=== PATIENT | female | born 1945 | race Caucasian/White ===

== ENCOUNTER 2022-10-19 11:39 | Inpatient (IN) | payer MEDICARE ==
[2022-10-19] MEDS ORDERED: IPRATROPIUM-ALBUTEROL 3 ML NEB INHALATION STA (12:14)
[2022-10-19] MEDS ORDERED: methylPREDNISolone SOD SUCCI 125 MG/2 ML VIAL IV STA (12:14)
--- NOTE | 2022-10-19 12:20 | ED ---
General Adult HPI - General Chief complaint: Weakness Stated complaint: back pain Time Seen by Provider: 10/19/22 11:44 Source: patient, EMS, RN notes reviewed Mode of arrival: EMS Limitations: physical limitation - History of Present Illness Initial comments: 77-year-old female presents emergency Department chief complaint weakness, hypoxia. Patient states that she's been having increasing weakness and which she states she cannot even stand up today. Patient was found to be hypoxic in the 70s. Patient states she does have asthma receives an inhaler from her PCP. Patient denies having history of COPD though she states she's been a heavy smoker for 50 years. Patient denies any focal weakness denies any current headache. She states she is very minimal urine output and states does occasionally burn when she does. Patient denies any fever or chills. She denies having any cold-like symptoms. Patient does have some chest tightness denies any pain - Related Data Allergies Allergy/AdvReac Type Severity Reaction Status Date / Time Penicillins Allergy Unknown Verified 10/19/22 12:29 sulfamethoxazole Allergy Unknown Verified 10/19/22 12:29 [From Bactrim] trimethoprim [From Bactrim] Allergy Unknown Verified 10/19/22 12:29 Review of Systems ROS Statement: Those systems with pertinent positive or pertinent negative responses have been documented in the HPI. ROS Other: All systems not noted in ROS Statement are negative. Past Medical History Past Medical History: Asthma Additional Past Surgical History / Comment(s): Colonoscopy. Smoking Status: Current every day smoker General Exam Limitations: physical limitation General appearance: alert, in no apparent distress Head exam: Present: atraumatic, normocephalic, normal inspection Eye exam: Present: normal appearance, PERRL, EOMI. Absent: scleral icterus, conjunctival injection, periorbital swelling ENT exam: Present: normal exam, normal oropharynx, mucous membranes moist Neck exam: Present: normal inspection. Absent: tenderness, meningismus, lymphadenopathy Respiratory exam: Present: wheezes, rales, decreased breath sounds. Absent: normal lung sounds bilaterally, respiratory distress, rhonchi, stridor Cardiovascular Exam: Present: regular rate, normal rhythm, normal heart sounds. Absent: systolic murmur, diastolic murmur, rubs, gallop, clicks GI/Abdominal exam: Present: soft, normal bowel sounds. Absent: distended, tenderness, guarding, rebound, rigid Extremities exam: Absent: pedal edema Skin exam: Present: warm, dry, intact, normal color. Absent: rash Course Vital Signs 10/19/22 10/19/22 10/19/22 11:46 11:59 13:12 Temperature 98.7 F Pulse Rate 55 L 76 Respiratory 18 Rate Blood Pressure 100/66 O2 Sat by Pulse 75 L 94 L Oximetry 10/19/22 10/19/22 10/19/22 13:17 13:19 13:20 Temperature Pulse Rate 75 71 71 Respiratory 18 Rate Blood Pressure 108/65 O2 Sat by Pulse 94 L Oximetry 10/19/22 10/19/22 13:27 14:58 Temperature Pulse Rate 73 82 Respiratory 18 Rate Blood Pressure 106/58 O2 Sat by Pulse 93 L Oximetry Medical Decision Making - Medical Decision Making Was pt. sent in by a medical professional or institution (Dr. PA, FOOD SERVICE SALES REPRESENTATIVES, urgent care, hospital, or senior care...) When possible be specific @ -[No] Did you speak to anyone other than the patient for history (EMS, parent, family, police, friend...)? What history was obtained from this source @ -[No] Did you review nursing and triage notes (agree or disagree)? Why? @ -[I reviewed and agree with nursing and triage notes] Were old charts reviewed (outside hosp., previous admission, EMS record, old EKG, old radiological studies, urgent care reports/EKG's, senior care records)? Report findings @ -[No old charts were reviewed] Differential Diagnosis (chest pain, altered mental status, abdominal pain women, abdominal pain men, vaginal bleeding, weakness, fever, dyspnea, syncope, headache, dizziness, GI bleed, back pain, seizure, CVA, palpatations, mental health, musculoskeletal)? @ -[DDifferential Dyspnea: Coronary syndrome, arrhythmia, tamponade, asthma, COPD, pulmonary embolism, pneumonia, pneumothorax, pulmonary effusion, anaphylaxis, diabetic ketoacidosis, flailed chest, pulmonary contusion, diaphragmatic rupture, anemia, neuromuscular, this is not meant to be an all-inclusive list. EKG interpreted by me (3pts min.). @ -[EKG performed at 13:08 sinus rhythm with rate of 82 FL 141/87 QT/QTC 336/374] X-rays interpreted by me (1pt min.). @ -[X-ray shows atelectasis versus possible. Infiltrate Or COPD changes] CT interpreted by me (1pt min.). @ -[CT of the chest for PE negative for PE] U/S interpreted by me (1pt. min.). @ -[None done] What testing was considered but not performed or refused? (CT, X-rays, U/S, labs)? Why? @ -[None] What meds were considered but not given or refused? Why? @ -[None] Did you discuss the management of the patient with other professionals (professionals i.e. , PA, FOOD SERVICE SALES REPRESENTATIVES, lab, RT, psych nurse, social welfare research worker, wooden barrel mechanic, teacher, real estate officer, case management coordinator)? Give summary @ -[EMH for admission for weakness, hypoxia, Was smoking cessation discussed for >3mins.? @ -[No] Was critical care preformed (if so, how long)? @ -[No] Were there social determinants of health that impacted care today? How? (Phoebe elessness, low income, unemployed, alcoholism, drug addiction, transportation, low edu. Level, literacy, decrease access to med. care, fci, rehab)? @ -[No] Was there de-escalation of care discussed even if they declined (Discuss DNR or withdrawal of care, Hospice)? DNR status @ -[No] What co-morbidities impacted this encounter? (DM, HTN, Smoking, COPD, CAD, Cancer, CVA, ARF, Chemo, Hep., AIDS, mental health diagnosis, sleep apnea, morbid obesity)? @ -[COPD] Was patient admitted / discharged? Hospital course, mention meds given and route, prescriptions, significant lab abnormalities, going to OR and other pertinent info. @ -[Admitted patient was found to be hypoxic upon arrival of EMS and upon arrival to the emergency department. Patient most likely has underlying COPD that is not diagnosed patient is a heavy smoker first over 50 years. Patient does not have evidence of PE. Patient is unable to ambulate secondary to weakness. Patient will be admitted with pulmonary consult.] Undiagnosed new problem with uncertain prognosis? @ -[No] Drug Therapy requiring intensive monitoring for toxicity (Heparin, Nitro, Insulin, Cardizem)? @ -[No] Were any procedures done? @ -[No] Diagnosis/symptom? @ -[COPD, hypoxia] Acute, or Chronic, or Acute on Chronic? @ -[Acute] Uncomplicated (without systemic symptoms) or Complicated (systemic symptoms)? @ -[Complicated] Side effects of treatment? @ -[No] Exacerbation, Progression, or Severe Exacerbation? @ -[No] Poses a threat to life or bodily function? How? (Chest pain, USA, CT, pneumonia, PE, COPD, DKA, ARF, appy, cholecystitis, CVA, Diverticulitis, Homicidal, Suicidal, threat to staff... and all critical care pts) @ -[Yes patient is hypoxic may lead to respiratory failure - Lab Data Result diagrams: 10/19/22 12:57 10/19/22 13:30 Lab Results 10/19/22 10/19/22 10/19/22 Range/Units 12:57 12:57 13:30 WBC 12.5 H (3.8-10.6) k/uL RBC 4.65 (3.80-5.40) m/uL Hgb 14.7 (11.4-16.0) gm/dL Hct 46.1 H (34.0-46.0) % MCV 99.1 (80.0-100.0) fL MCH 31.7 (25.0-35.0) pg MCHC 32.0 (31.0-37.0) g/dL RDW 13.3 (11.5-15.5) % Plt Count 222 (150-450) k/uL MPV 8.7 Neutrophils % 89 % Lymphocytes % 5 % Monocytes % 5 % Eosinophils % 1 % Basophils % 0 % Neutrophils # 11.1 H (1.3-7.7) k/uL Lymphocytes # 0.6 L (1.0-4.8) k/uL Monocytes # 0.6 (0-1.0) k/uL Eosinophils # 0.1 (0-0.7) k/uL Basophils # 0.0 (0-0.2) k/uL PT 9.8 (9.0-12.0) sec INR 0.9 (<1.2) APTT 21.4 L (22.0-30.0) sec D-Dimer 1.87 H (<0.60) mg/L FEU Sodium 135 L (137-145) mmol/L Potassium 5.0 (3.5-5.1) mmol/L Chloride 98 (98-107) mmol/L Carbon Dioxide 37 H (22-30) mmol/L Anion Gap 0 mmol/L BUN 32 H (7-17) mg/dL Creatinine 0.83 (0.52-1.04) mg/dL Est GFR (CKD-EPI)AfAm 79 (>60 ml/min/1.73 sqM) Est GFR (CKD-EPI)NonAf 69 (>60 ml/min/1.73 sqM) Glucose 106 H (74-99) mg/dL Plasma Lactic Acid Ashish (0.7-2.0) mmol/L Calcium 8.6 (8.4-10.2) mg/dL Magnesium 2.1 (1.6-2.3) mg/dL Total Bilirubin 0.7 (0.2-1.3) mg/dL AST 30 (14-36) U/L ALT 40 H (4-34) U/L Alkaline Phosphatase 230 H (38-126) U/L Troponin I (0.000-0.034) ng/mL NT-Pro-B Natriuret Pep pg/mL Total Protein 5.9 L (6.3-8.2) g/dL Albumin 3.1 L (3.5-5.0) g/dL 10/19/22 10/19/22 10/19/22 Range/Units 13:30 13:30 13:30 WBC (3.8-10.6) k/uL RBC (3.80-5.40) m/uL Hgb (11.4-16.0) gm/dL Hct (34.0-46.0) % MCV (80.0-100.0) fL MCH (25.0-35.0) pg MCHC (31.0-37.0) g/dL RDW (11.5-15.5) % Plt Count (150-450) k/uL MPV Neutrophils % % Lymphocytes % % Monocytes % % Eosinophils % % Basophils % % Neutrophils # (1.3-7.7) k/uL Lymphocytes # (1.0-4.8) k/uL Monocytes # (0-1.0) k/uL Eosinophils # (0-0.7) k/uL Basophils # (0-0.2) k/uL PT (9.0-12.0) sec INR (<1.2) APTT (22.0-30.0) sec D-Dimer (<0.60) mg/L FEU Sodium (137-145) mmol/L Potassium (3.5-5.1) mmol/L Chloride (98-107) mmol/L Carbon Dioxide (22-30) mmol/L Anion Gap mmol/L BUN (7-17) mg/dL Creatinine (0.52-1.04) mg/dL Est GFR (CKD-EPI)AfAm (>60 ml/min/1.73 sqM) Est GFR (CKD-EPI)NonAf (>60 ml/min/1.73 sqM) Glucose (74-99) mg/dL Plasma Lactic Acid Ashish 0.8 (0.7-2.0) mmol/L Calcium (8.4-10.2) mg/dL Magnesium (1.6-2.3) mg/dL Total Bilirubin (0.2-1.3) mg/dL AST (14-36) U/L ALT (4-34) U/L Alkaline Phosphatase (38-126) U/L Troponin I 0.021 (0.000-0.034) ng/mL NT-Pro-B Natriuret Pep 259 pg/mL Total Protein (6.3-8.2) g/dL Albumin (3.5-5.0) g/dL Disposition Clinical Impression: Hypoxia, COPD (chronic obstructive pulmonary disease), Weakness Disposition: ADMITTED IP TO THIS [facility] Condition: Poor Referrals: None,Stated [Primary Care Provider] - 1-2 days Time of Disposition: 15:24
--- NOTE | 2022-10-19 12:54 | XR ---
EXAMINATION TYPE: XR chest 2V DATE OF EXAM: 10/19/2022 COMPARISON: NONE HISTORY: Difficulty in breathing. Weakness and hypoxia. TECHNIQUE: Frontal and lateral views of the chest are obtained. FINDINGS: Evaluation is suboptimal due to body habitus along with chin overlying the lung apices. Os seous structures are demineralized. Exaggerated kyphosis is seen. Underlying scoliosis is present. In creased interstitial markings bilaterally with retrocardiac increased opacity. Cardiac silhouette siz e is likely mildly enlarged. No pleural effusion or pneumothorax seen bilaterally. IMPRESSION: Mild cardiomegaly. Chronic parenchymal changes and/or mild interstitial edema. More foca l posterior basilar likely left lower lobe acute infiltrate and/or atelectasis noted. Correlate clini manuel. Correlation with old outside x-ray and/or CT would be beneficial.
[2022-10-19 13:13] LABS: Basophils % (A) 0 %; Eosinophils # (A) 0.1 k/uL (0-0.7); Eosinophils % (A) 1 %; HCT 46.1 % (34.0-46.0); HGB 14.7 gm/dL (11.4-16.0); Lymphocytes # (A) 0.6 k/uL (1.0-4.8); Lymphocytes % (A) 5 %; MCH 31.7 pg (25.0-35.0); MCV 99.1 fL (80.0-100.0); Mean Platelet Volume 8.7; Monocytes # (A) 0.6 k/uL (0-1.0); Monocytes % (A) 5 %; Neutrophils # (A) 11.1 k/uL (1.3-7.7); Neutrophils % (A) 89 %; Platelet Count 222 k/uL (150-450); RBC 4.65 m/uL (3.80-5.40); RDW 13.3 % (11.5-15.5); WBC 12.5 k/uL (3.8-10.6)
[2022-10-19 13:49] LABS: INR 0.9 (<1.2); Prothrombin Time 9.8 sec (9.0-12.0)
[2022-10-19 13:52] LABS: Partial Thromboplastin Time 21.4 sec (22.0-30.0)
[2022-10-19 14:00] LABS: Albumin 3.1 g/dL (3.5-5.0); Calcium 8.6 mg/dL (8.4-10.2); Magnesium 2.1 mg/dL (1.6-2.3); Total Bilirubin 0.7 mg/dL (0.2-1.3); Total Protein 5.9 g/dL (6.3-8.2)
[2022-10-19] MEDS ORDERED: KETOROLAC 15 MG/ML 1 ML VIAL IVP STA (14:35)
--- NOTE | 2022-10-19 15:01 | CT ---
EXAMINATION TYPE: CT chest angio for PE DATE OF EXAM: 10/19/2022 COMPARISON: None HISTORY: PE CT DLP: 367.7 mGycm CONTRAST: CT chest with contrast and 3D reconstruction with MIP imaging is performed with IV Contrast, patient injected with 80 mL of Isovue 370. Contrast-enhanced CT of the chest was performed through the course of the pulmonary arteries with geraldine g and mediastinal window settings submitted. 3D reconstruction with MIP imaging was also performed. PULMONARY ARTERIES: The pulmonary arteries and their major tributaries are patent. I do not see breanne dence for sizable filling defect to suggest pulmonary embolic process. LUNGS: Basilar atelectasis noted. No evidence for consolidation. MEDIASTINUM: Thoracic aorta is of normal caliber.The heart is mildly enlarged. No evidence for medi astinal mass. No mediastinal lymph nodes greater than 1cm. HILAR STRUCTURES: No evidence for mass. No hilar lymph nodes greater than 1 cm. UPPER ABDOMEN: No significant abnormality is seen. IMPRESSION: 1. No evidence for Pulmonary embolism at this time.
[2022-10-19] MEDS ORDERED: IPRATROPIUM-ALBUTEROL 3 ML NEB INHALATION PRN (15:24)
[2022-10-19] MEDS ORDERED: NALOXONE 0.4 MG/ML 1 ML VIAL IVP PRN (15:24)
[2022-10-19] MEDS ORDERED: IPRATROPIUM 0.5 MG/2.5 ML NEBU INHALATION PRN (15:30)
[2022-10-19] MEDS ORDERED: ALBUTEROL NEBULIZED 2.5 MG/3 ML INHALATION PRN (15:30)
[2022-10-19] MEDS: IPRATROPIUM 0.5 MG/2.5 ML NEBU INHALATION SCH ×2 (15:41→20:26)
[2022-10-19] MEDS: ALBUTEROL NEBULIZED 2.5 MG/3 ML INHALATION SCH ×2 (15:41→20:26)
[2022-10-19] MEDS ORDERED: IPRATROPIUM-ALBUTEROL 3 ML NEB INHALATION SCH (16:00)
[2022-10-19] MEDS: methylPREDNISolone SOD SUCCI 125 MG/2 ML VIAL IV SCH ×2 (17:47→23:40)
[2022-10-19] MEDS: AZITHROMYCIN 500 MG TAB PO SCH (17:47)
[2022-10-19 19:16] LABS: Appearance,Urine Clear (Clear); Bilirubin,Urine Negative (Negative); Blood,Urine Negative (Negative); Color,Urine Yellow; Glucose,Urine (UA) 1+ (Negative); Ketones,Urine Negative (Negative); Leukocyte Esterase,Urine Negative (Negative); Nitrite,Urine Negative (Negative); Protein,Urine Trace (Negative); Urobilinogen,Urine <2.0 mg/dL (<2.0)
[2022-10-20] MEDS: methylPREDNISolone SOD SUCCI 125 MG/2 ML VIAL IV SCH ×4 (06:03→23:18)
[2022-10-20] MEDS: IPRATROPIUM 0.5 MG/2.5 ML NEBU INHALATION SCH ×4 (09:03→19:55)
[2022-10-20] MEDS: ALBUTEROL NEBULIZED 2.5 MG/3 ML INHALATION SCH ×4 (09:03→19:55)
[2022-10-20] MEDS: GABAPENTIN 300 MG CAP PO SCH ×3 (09:33→21:00)
[2022-10-20] MEDS: NICOTINE 21MG/24HR PATCH TRANSDERM SCH (09:34)
--- NOTE | 2022-10-20 10:16 | P.CNPUL ---
History of Present Illness Consult date: 10/20/22 Reason for consult: dyspnea, COPD History of present illness: This is a 77-year-old female patient was hospitalized with pneumonia and COPD exacerbation. The patient is known to have COPD maintain on Trelegy Ellipta on an outpatient basis pH is a chronic smoker and she is smoking up to 3 pack of cigarettes a day. She started smoking at the age of 16. The patient is not oxygen dependent. The patient came into the emergency because of worsening weakness. She has chronic back pain and she has been having difficulties in mobility and standing up. At the same time, he was found to be hypoxic with a pulse ox in the 70s. Accordingly, the patient was given a chest x-ray and following that the patient was given a CT angiogram. I reviewed the films and the patient has background emphysema and there is a right lower lobe pneumonia. Nevertheless, there is no evidence of pulmonary embolism. Based on that, the patient was hospitalized. Covid 19 has not been checked. In terms of blood work, d-dimer is at 1.7, fasting coagulation profile is within normal limits. The discomfort of 12.5 with a hemoglobin 14.7. Normal UA. Normal troponins. Alkaline phosphatase slightly elevated at 2:30, bilirubin is at 0.7, total protein is at 5.9. Patient is currently on Zithromax. The patient is also on bronchodilators with albuterol. She was placed on IV Solu-Medrol. She was also given a nicotine patch. Review of Systems Constitutional: Reports fatigue, Reports weakness Eyes: denies as per HPI, denies blurred vision, denies bulging eye, denies decreased vision, denies diplopia, denies discharge, denies dry eye, denies irritation, denies itching, denies pain, denies photophobia, denies loss of peripheral vision, denies loss of vision, denies tunnel vision/blind spots Ears: deny: decreased hearing, ear discharge, earache, tinnitus Ears, nose, mouth and throat: Reports as per HPI Breasts: absent: as per HPI, change in shape, gynecomastia, masses, nipple discharge, pain, skin changes, swelling Breasts: Reports as per HPI Cardiovascular: Reports decreased exercise tolerance Respiratory: Reports congestion, Reports dyspnea, Reports wheezing Gastrointestinal: Reports as per HPI Genitourinary: Reports as per HPI Menstruation: Reports as per HPI Musculoskeletal: Reports low back pain Musculoskeletal: absent: ankle pain, ankle stiffness, ankle swelling Integumentary: Reports as per HPI Neurological: Reports paresthesias, Reports weakness Psychiatric: Reports as per HPI Endocrine: Reports as per HPI Hematologic/Lymphatic: Reports as per HPI Allergic/Immunologic: Reports as per HPI Past Medical History Past Medical History: COPD, Hyperlipidemia, Hypertension, Musculoskeletal Disorder Additional Past Medical History / Comment(s): RLS History of Any Multi-Drug Resistant Organisms: None Reported Additional Past Surgical History / Comment(s): Colonoscopy. Smoking Status: Current every day smoker Medications and Allergies Home Medications Medication Instructions Recorded Confirmed Type Aspirin EC [Ecotrin Low Dose] 81 mg PO DAILY 10/19/22 10/19/22 History Cholecalciferol (Vitamin D3) 50 mcg PO DAILY 10/19/22 10/19/22 History [Vitamin D3 (50 Mcg = 2000 Iu) Chew Tab] Fluticasone/Umeclidin/Vilanter 1 puff INHALATION RT-DAILY 10/19/22 10/19/22 History [Trelegy Ellipta 100-62.5-25] Gabapentin 600 mg PO TID 10/19/22 10/19/22 History Multivitamins, Thera [Multivitamin 1 tab PO DAILY 10/19/22 10/19/22 History (formulary)] NIFEdipine XL [Procardia Xl] 30 mg PO DAILY 10/19/22 10/19/22 History [place]-3/Dha/Epa/Fish Oil [Fish Oil 1 cap PO DAILY 10/19/22 10/19/22 History 1,000 mg Softgel] Pravastatin Sodium [Pravachol] 10 mg PO DAILY 10/19/22 10/19/22 History lisinopriL [Zestril] 5 mg PO DAILY 10/19/22 10/19/22 History ondansetron HCL [Zofran] 8 mg PO Q8H PRN 10/19/22 10/19/22 History rOPINIRole HCL [Requip] 0.25 mg PO DAILY 10/19/22 10/19/22 History Allergies Allergy/AdvReac Type Severity Reaction Status Date / Time Penicillins Allergy Itching Verified 10/19/22 16:11 sulfamethoxazole Allergy Itching Verified 10/19/22 16:11 [From Bactrim] trimethoprim [From Bactrim] Allergy Itching Verified 10/19/22 16:11 Physical Exam Vitals: Vital Signs Temp Pulse Pulse Resp BP BP Pulse Ox 10/20/22 09:18 80 10/20/22 09:03 82 92 L 10/20/22 08:00 98.2 F 59 L 17 129/79 94 L 10/20/22 00:45 98.6 F 59 L 18 126/72 92 L 10/19/22 20:42 72 10/19/22 20:28 72 10/19/22 20:01 18 94 L 10/19/22 19:07 98.4 F 77 18 112/69 93 L 10/19/22 17:43 82 18 113/71 92 L 10/19/22 15:53 82 10/19/22 15:41 79 10/19/22 14:58 82 18 106/58 93 L 10/19/22 13:27 73 10/19/22 13:20 71 10/19/22 13:19 71 10/19/22 13:17 75 18 108/65 94 L 10/19/22 13:12 76 10/19/22 11:59 94 L 10/19/22 11:46 98.7 F 55 L 18 100/66 75 L Intake and Output 10/19/22 10/20/22 10/20/22 22:59 06:59 14:59 Output Total 300 Balance -300 Output: Urine 300 Other: # Voids 0 # Bowel Movements 0 Weight 98.883 kg Calm and comfortable and currently she is on oxygen at 6 L nasal cannula Head exam was generally normal. There was no scleral icterus or corneal arcus. Mucous membranes were moist. Neck was supple and without jugular venous distension, thyromegaly, or carotid bruits. Carotids were easily palpable bilaterally. There was no adenopathy. Lungs sounds are diminished bilaterally and the patient is tracking lung bases more so on the right. This could expiratory wheezes. Cardiac exam revealed the PMI to be normally situated and sized. The rhythm was regular and no extrasystoles were noted during several minutes of auscultation. The first and second heart sounds were normal and physiologic splitting of the second heart sound was noted. There were no murmurs, rubs, clicks, or gallops. Abdominal exam revealed normal bowel sounds. The abdomen was soft, non-tender, and without masses, organomegaly, or appreciable enlargement of the abdominal aorta. Examination of the extremities revealed easily palpable radial, femoral and pedal pulses. There was no cyanosis, clubbing or edema. Examination of the skin revealed no evidence of significant rashes, suspicious appearing nevi or other concerning lesions. Neurologically, the patient is awake and alert and the patient does not have any focal neurological deficit. Cranial nerves are essentially intact. Results - Laboratory Findings CBC and BMP: 10/19/22 12:57 10/19/22 13:30 PT/INR, D-dimer PT 9.8 sec (9.0-12.0) 10/19/22 12:57 INR 0.9 (<1.2) 10/19/22 12:57 D-Dimer 1.87 mg/L FEU (<0.60) H 10/19/22 12:57 Abnormal lab findings: Abnormal Labs 10/19/22 10/19/22 10/19/22 12:57 12:57 13:30 WBC 12.5 H Hct 46.1 H Neutrophils # 11.1 H Lymphocytes # 0.6 L APTT 21.4 L D-Dimer 1.87 H Sodium 135 L Carbon Dioxide 37 H BUN 32 H Glucose 106 H ALT 40 H Alkaline Phosphatase 230 H Total Protein 5.9 L Albumin 3.1 L Ur Specific [place] Urine Protein Urine Glucose (UA) 10/19/22 18:55 WBC Hct Neutrophils # Lymphocytes # APTT D-Dimer Sodium Carbon Dioxide BUN Glucose ALT Alkaline Phosphatase Total Protein Albumin Ur Specific [place] 1.040 H Urine Protein Trace H Urine Glucose (UA) 1+ H - Diagnostic Findings Chest x-ray: image reviewed CT scan - chest: image reviewed Assessment and Plan Plan: Acute hypoxic respiratory failure secondary to COPD exacerbation right lower lobe pneumonia, currently on 6 L Advanced COPD and the patient with known history of smoking, maintain on Trelegy Ellipta on outpatient basis Right lower lobe pulmonary infiltrate/pneumonia, likely currently quite contributing to respiratory failure History of smoking Chronic back pain and difficulty with mobility and gait, likely history of radiculopathy Hypertension Hyperlipidemia History of restless leg syndrome Plan Start the patient on Rocephin in combination with Zithromax regarding the right lower lobe pneumonia Continue albuterol nebulized treatments 4 times a day Continue IV Solu-Medrol Check sputum Gram stain and culture Check pro calcitonin level Nicotine patch Ask the patient to bring her Trelegy Ellipta from home and utilize a during her hospital stay Smoking cessation counseling Resume all medications including Requip Heparin subcu portably prophylaxis We'll continue to follow
[2022-10-20] MEDS: AZITHROMYCIN 500 MG TAB PO SCH (11:15)
--- NOTE | 2022-10-20 14:37 | P.HPIM ---
History of Present Illness H&P Date: 10/19/22 Chief Complaint: Back pain/weakness 77-year-old female presents emergency Department chief complaint weakness, hypoxia. Patient states that she's been having increasing weakness and which she states she cannot even stand up today. Patient was found to be hypoxic in the 70s. Patient states she does have asthma receives an inhaler from her PCP. Patient denies having history of COPD though she states she's been a heavy smoker for 50 years. Patient denies any focal weakness denies any current headache. She states she is very minimal urine output and states does occas ionally burn when she does. Patient denies any fever or chills. She denies having any cold-like symptoms. Patient does have some chest tightness denies any pain Patient was found to be hypoxic in ED. Patient is a heavy smoker for 50 years; CTA chest is negative for PE but didn't reveal background emphysema and right lower lobe pneumonia blood work, d-dimer is at 1.7, fasting coagulation profile is within normal limits. The discomfort of 12.5 with a hemoglobin 14.7. Normal UA. Normal troponins. Alkaline phosphatase slightly elevated at 2:30, bilirubin is at 0.7, total protein is at 5.9. Review of Systems REVIEW OF SYSTEMS: CONSTITUTIONAL: No fever, no malaise, no fatigue. HEENT: No recent visual problems or hearing problems. Denied any sore throat. CARDIOVASCULAR: No chest pain, orthopnea, PND, no palpitations, no syncope. PULMONARY: No shortness of breath, no cough, no hemoptysis. GASTROINTESTINAL: No diarrhea, no nausea, no vomiting, no abdominal pain. NEUROLOGICAL: No headaches, no weakness, no numbness. HEMATOLOGICAL: Denies any bleeding or petechiae. GENITOURINARY: Denies any burning micturition, frequency, or urgency. MUSCULOSKELETAL/RHEUMATOLOGICAL: Denies any joint pain, swelling, or any muscle pain. ENDOCRINE: Denies any polyuria or polydipsia. The rest of the 14-point review of systems is negative. Past Medical History Past Medical History: Asthma Additional Past Surgical History / Comment(s): Colonoscopy. Smoking Status: Current every day smoker Medications and Allergies Home Medications Medication Instructions Recorded Confirmed Type Aspirin EC [Ecotrin Low Dose] 81 mg PO DAILY 10/19/22 10/19/22 History Cholecalciferol (Vitamin D3) 50 mcg PO DAILY 10/19/22 10/19/22 History [Vitamin D3 (50 Mcg = 2000 Iu) Chew Tab] Fluticasone/Umeclidin/Vilanter 1 puff INHALATION RT-DAILY 10/19/22 10/19/22 History [Trelegy Ellipta 100-62.5-25] Gabapentin 600 mg PO TID 10/19/22 10/19/22 History Multivitamins, Thera [Multivitamin 1 tab PO DAILY 10/19/22 10/19/22 History (formulary)] NIFEdipine XL [Procardia Xl] 30 mg PO DAILY 10/19/22 10/19/22 History [place]-3/Dha/Epa/Fish Oil [Fish Oil 1 cap PO DAILY 10/19/22 10/19/22 History 1,000 mg Softgel] Pravastatin Sodium [Pravachol] 10 mg PO DAILY 10/19/22 10/19/22 History lisinopriL [Zestril] 5 mg PO DAILY 10/19/22 10/19/22 History ondansetron HCL [Zofran] 8 mg PO Q8H PRN 10/19/22 10/19/22 History rOPINIRole HCL [Requip] 0.25 mg PO DAILY 10/19/22 10/19/22 History Allergies Allergy/AdvReac Type Severity Reaction Status Date / Time Penicillins Allergy Itching Verified 10/19/22 16:11 sulfamethoxazole Allergy Itching Verified 10/19/22 16:11 [From Bactrim] trimethoprim [From Bactrim] Allergy Itching Verified 10/19/22 16:11 Physical Exam Vitals: Vital Signs Temp Pulse Resp BP Pulse Ox 10/19/22 17:43 82 18 113/71 92 L 10/19/22 15:53 82 10/19/22 15:41 79 10/19/22 14:58 82 18 106/58 93 L 10/19/22 13:27 73 10/19/22 13:20 71 10/19/22 13:19 71 10/19/22 13:17 75 18 108/65 94 L 10/19/22 13:12 76 10/19/22 11:59 94 L 10/19/22 11:46 98.7 F 55 L 18 100/66 75 L Intake and Output 10/19/22 10/19/22 10/19/22 06:59 14:59 22:59 Other: Weight 98.883 kg Head exam was generally normal. There was no scleral icterus or corneal arcus. Mucous membranes were moist. Neck was supple and without jugular venous distension, thyromegaly, or carotid bruits. Carotids were easily palpable bilaterally. There was no adenopathy. Lungs sounds are diminished bilaterally and the patient is tracking lung bases more so on the right. This could expiratory wheezes. Cardiac exam revealed the PMI to be normally situated and sized. The rhythm was regular and no extrasystoles were noted during several minutes of auscultation. The first and second heart sounds were normal and physiologic splitting of the second heart sound was noted. There were no murmurs, rubs, clicks, or gallops. Abdominal exam revealed normal bowel sounds. The abdomen was soft, non-tender, and without masses, organomegaly, or appreciable enlargement of the abdominal aorta. Examination of the extremities revealed easily palpable radial, femoral and pedal pulses. There was no cyanosis, clubbing or edema. Examination of the skin revealed no evidence of significant rashes, suspicious appearing nevi or other concerning lesions. Neurologically, the patient is awake and alert and the patient does not have any focal neurological deficit. Cranial nerves are essentially intact. Results CBC & Chem 7: 10/19/22 12:57 10/19/22 13:30 Labs: Abnormal Lab Results - Last 24 Hours (Table) 10/19/22 10/19/22 10/19/22 Range/Units 12:57 12:57 13:30 WBC 12.5 H (3.8-10.6) k/uL Hct 46.1 H (34.0-46.0) % Neutrophils # 11.1 H (1.3-7.7) k/uL Lymphocytes # 0.6 L (1.0-4.8) k/uL APTT 21.4 L (22.0-30.0) sec D-Dimer 1.87 H (<0.60) mg/L FEU Sodium 135 L (137-145) mmol/L Carbon Dioxide 37 H (22-30) mmol/L BUN 32 H (7-17) mg/dL Glucose 106 H (74-99) mg/dL ALT 40 H (4-34) U/L Alkaline Phosphatase 230 H (38-126) U/L Total Protein 5.9 L (6.3-8.2) g/dL Albumin 3.1 L (3.5-5.0) g/dL Assessment and Plan Assessment: 1. Acute hypoxic respiratory failure; multifactorial related to COPD exacerbation versus pneumonia - Patient is currently on O2 per nasal cannula at 6 L; O2 saturation maintaining above; we will plan to titrate intravenous able 2. Advanced COPD; in acute exacerbation; patient has long-standing history of smoking; patient is placed on IV Solu-Medrol; albuterol nebulizer treatments 4 times a day; patient to bring her Cece Weston from home and utilize a during her hospital stay 3. Right lower lobe pneumonia; patient has been placed on Rocephin 1 g IV daily along with azithromycin 500 mg IV daily; albuterol nebulizer treatments 4 times a day; has been placed on IV Solu-Medrol recommendations 4. Hypertension; lisinopril 5 mg daily 5. Hyperlipidemia; Pravachol 10 mg by mouth daily at bedtime 6. Peripheral neuropathy; Neurontin 600 mg by mouth 3 times a day 7. Restless leg syndrome; patient takes Requip 0.25 mg daily 8. Long-standing history of tobacco abuse; counseling done for smoking cessation; nicotine patch as ordered DVT prophylaxis; SCDs/subcu heparin CODE STATUS; full code
[2022-10-21] MEDS: methylPREDNISolone SOD SUCCI 125 MG/2 ML VIAL IV SCH ×3 (06:13→17:42)
[2022-10-21] MEDS: IPRATROPIUM 0.5 MG/2.5 ML NEBU INHALATION SCH ×4 (08:39→19:08)
[2022-10-21] MEDS: ALBUTEROL NEBULIZED 2.5 MG/3 ML INHALATION SCH ×4 (08:39→19:08)
[2022-10-21 09:16] LABS: African American GFR (CKD) 96.2 (60.0-200.0); Anion Gap 8.3 mmol/L (10.00-18.00); BUN/Creat Ratio 27.98 Ratio (12.00-20.00); Blood Urea Nitrogen 19.7 mg/dL (9.0-27.0); Calcium 9.3 mg/dL (8.7-10.3); Carbon Dioxide 32.2 mmol/L (20.0-27.5)
[2022-10-21 09:23] LABS: Basophils # (A) 0.03 X 10*3/uL (0.00-0.10); Basophils % (A) 0.2 %; Eosinophils # (A) 0 X 10*3/uL (0.04-0.35); Eosinophils % (A) 0 %; HCT 43.1 % (37.2-46.3); HGB 13.4 g/dL (12.0-15.0); Immature Grans, Automated 0.7 %; Lymphocytes # (A) 0.35 X 10*3/uL (0.90-5.00); Lymphocytes % (A) 2.1 %; MCH 30.6 pg (27.0-32.0); MCHC 31.1 g/dL (32.0-37.0); MCV 98.4 fL (80.0-97.0); Mean Platelet Volume 10.7 fL (9.5-12.2); Monocytes # (A) 0.48 X 10*3/uL (0.20-1.00); Monocytes % (A) 2.8 %; NRBC Per 100 WBC 0 /100 WBCS (0.0-0.0); Neutrophils # (A) 15.88 X 10*3/uL (1.80-7.70); Neutrophils % (A) 94.2 %; Platelet Count 207 X 10*3/uL (140-440); RBC 4.38 X 10*6/uL (4.10-5.20); RDW 13.8 % (11.5-14.5); WBC 16.85 X 10*3/uL (4.50-10.00)
[2022-10-21] MEDS: ENOXAPARIN 40 MG/0.4 ML SYRINGE SQ SCH (09:27)
[2022-10-21] MEDS: GABAPENTIN 300 MG CAP PO SCH ×3 (09:27→21:17)
[2022-10-21] MEDS: NICOTINE 21MG/24HR PATCH TRANSDERM SCH (09:27)
[2022-10-21] MEDS: PRAVASTATIN SODIUM 20 MG TAB PO SCH (09:28)
[2022-10-21] MEDS: CHOLECALCIFEROL 25 MCG (1000 IU) TABLET PO SCH (09:28)
[2022-10-21] MEDS: NIFEdipine XL 30 MG TAB.ER.24 PO SCH (09:28)
[2022-10-21] MEDS: MULTIVITAMINS, THERA 1 EACH TAB PO SCH (09:28)
[2022-10-21] MEDS: lisinopriL 5 MG TAB PO SCH (09:28)
[2022-10-21] MEDS: AZITHROMYCIN 500 MG TAB PO SCH (09:29)
--- NOTE | 2022-10-21 10:23 | P.PN ---
Subjective Progress Note Date: 10/21/22 This is a 77-year-old female patient was hospitalized with pneumonia and COPD exacerbation. The patient is known to have COPD maintain on Trelegy Ellipta on an outpatient basis pH is a chronic smoker and she is smoking up to 3 pack of cigarettes a day. She started smoking at the age of 16. The patient is not oxygen dependent. The patient came into the emergency because of worsening weakness. She has chronic back pain and she has been having difficulties in mobility and standing up. At the same time, he was found to be hypoxic with a pulse ox in the 70s. Accordingly, the patient was given a chest x-ray and following that the patient was given a CT angiogram. I reviewed the films and the patient has background emphysema and there is a right lower lobe pneumonia. Nevertheless, there is no evidence of pulmonary embolism. Based on that, the patient was hospitalized. Covid 19 has not been checked. In terms of blood work, d-dimer is at 1.7, fasting coagulation profile is within normal limits. The discomfort of 12.5 with a hemoglobin 14.7. Normal UA. Normal troponins. Alkaline phosphatase slightly elevated at 2:30, bilirubin is at 0.7, total protein is at 5.9. Patient is currently on Zithromax. The patient is also on bronchodilators with albuterol. She was placed on IV Solu-Medrol. She was also given a nicotine patch. On today's evaluation of 10/21/2022, some limited improvement since yesterday. The patient is still coughing. She was able to give us a sputum sample and the cultures are still pending. Meanwhile, the patient is currently on oxygen and she is on 5 L O2 nasal cannula. He remains on bronchodilators. She remains on steroids.Visit is at 16.8 with a hemoglobin of 13.4 and a platelet count of 207. Sodium is 140 with a potassium level of 5, BUN is 19 with a creatinine of 0.7. The patient remains on broad-spectrum antibiotics and steroids. Covid 19 testing turned out to be negative. Objective - Vital Signs Vital signs: Vital Signs Temp 98.7 F 10/21/22 08:00 Pulse 72 10/21/22 08:52 Resp 18 10/21/22 08:00 BP 140/77 10/21/22 08:00 Pulse Ox 91 L 10/21/22 08:39 FiO2 Intake & Output 10/20/22 10/21/22 10/21/22 18:59 06:59 18:59 Intake Total 200 Balance 200 Intake: Oral 200 Other: Voiding Method Bedpan # Voids 2 2 # Bowel Movements 1 - Exam Calm and comfortable and currently she is on oxygen at 5 L nasal cannula Head exam was generally normal. There was no scleral icterus or corneal arcus. Mucous membranes were moist. Neck was supple and without jugular venous distension, thyromegaly, or carotid bruits. Carotids were easily palpable bilaterally. There was no adenopathy. Lungs sounds are diminished bilaterally and the patient is tracking lung bases more so on the right. This could expiratory wheezes. Cardiac exam revealed the PMI to be normally situated and sized. The rhythm was regular and no extrasystoles were noted during several minutes of auscultation. The first and second heart sounds were normal and physiologic splitting of the second heart sound was noted. There were no murmurs, rubs, clicks, or gallops. Abdominal exam revealed normal bowel sounds. The abdomen was soft, non-tender, and without masses, organomegaly, or appreciable enlargement of the abdominal aorta. Examination of the extremities revealed easily palpable radial, femoral and pedal pulses. There was no cyanosis, clubbing or edema. Examination of the skin revealed no evidence of significant rashes, suspicious appearing nevi or other concerning lesions. Neurologically, the patient is awake and alert and the patient does not have any focal neurological deficit. Cranial nerves are essentially intact. - Labs CBC & Chem 7: 10/21/22 03:45 10/21/22 03:45 Labs: Abnormal Lab Results - Last 24 Hours (Table) 10/21/22 10/21/22 Range/Units 03:45 03:45 WBC 16.85 H (4.50-10.00) X 10*3/uL MCV 98.4 H (80.0-97.0) fL MCHC 31.1 L (32.0-37.0) g/dL Immature Gran # 0.11 H (0.00-0.04) X 10*3/uL Neutrophils # 15.88 H (1.80-7.70) X 10*3/uL Lymphocytes # 0.35 L (0.90-5.00) X 10*3/uL Eosinophils # 0 L (0.04-0.35) X 10*3/uL Carbon Dioxide 32.2 H (20.0-27.5) mmol/L Anion Gap 8.30 L (10.00-18.00) mmol/L BUN/Creatinine Ratio 27.98 H (12.00-20.00) Ratio Glucose 147 H (70-110) mg/dL Microbiology - Last 24 Hours (Table) 10/20/22 11:58 Gram Stain - Preliminary Sputum Sputum Culture - Preliminary Assessment and Plan Plan: Acute hypoxic respiratory failure secondary to COPD exacerbation right lower lobe pneumonia, currently on 5 L Advanced COPD and the patient with known history of smoking, maintain on Trelegy Ellipta on outpatient basis Right lower lobe pulmonary infiltrate/pneumonia, contributing to respiratory failure History of smoking Chronic back pain and difficulty with mobility and gait, likely history of radiculopathy Hypertension Hyperlipidemia History of restless leg syndrome Plan Clinically slightly improved compared to yesterday Continue Rocephin in combination with Zithromax regarding the right lower lobe pneumonia Continue albuterol nebulized treatments 4 times a day Continue IV Solu-Medrol Check sputum Gram stain and culture, were sent and the results are still pending Check pro calcitonin level Nicotine patch Ask the patient to bring her Trelegy Ellipta from home and utilize a during her hospital stay Smoking cessation counseling Resume all medications including Requip Heparin subcu portably prophylaxis We'll continue to follow
--- NOTE | 2022-10-21 11:02 | P.PN ---
Subjective Progress Note Date: 10/20/22 77-year-old female presents emergency Department chief complaint weakness, hypoxia. Patient states that she's been having increasing weakness and which she states she cannot even stand up today. Patient was found to be hypoxic in the 70s. Patient states she does have asthma receives an inhaler from her PCP. Patient denies having history of COPD though she states she's been a heavy smoker for 50 years. Patient denies any focal weakness denies any current headache. She states she is very minimal urine output and states does occasionally burn when she does. Patient denies any fever or chills. She denies having any cold-like symptoms. Patient does have some chest tightness denies any pain Patient was found to be hypoxic in ED. Patient is a heavy smoker for 50 years; CTA chest is negative for PE but didn't reveal background emphysema and right lower lobe pneumonia blood work, d-dimer is at 1.7, fasting coagulation profile is within normal limits. The discomfort of 12.5 with a hemoglobin 14.7. Normal UA. Normal troponins. Alkaline phosphatase slightly elevated at 2:30, bilirubin is at 0.7, total protein is at 5.9. -- Patient has been evaluated by pulmonary service and has been placed on IV Rocephin and azithromycin for right lower lobe pneumonia; patient remains on albuterol nebulizer treatments 4 times a day; continue with current dose of IV Solu-Medrol; sputum Gram stain and culture is sent and pending Objective - Vital Signs Vital signs: Vital Signs Temp 98.8 F 10/20/22 14:00 Pulse 83 10/20/22 14:00 Resp 17 10/20/22 14:00 BP 128/81 10/20/22 14:00 Pulse Ox 95 10/20/22 14:00 FiO2 Intake & Output 10/19/22 10/20/22 10/20/22 18:59 06:59 18:59 Intake Total 200 Output Total 300 Balance -300 200 Weight 98.883 kg Intake: Oral 200 Output: Urine 300 Other: Voiding Method Bedpan # Voids 0 # Bowel Movements 0 - Exam PHYSICAL EXAMINATION: GENERAL: The patient is alert and oriented x3, not in any acute distress. Well developed, well nourished. HEENT: Pupils are round and equally reacting to light. EOMI. No scleral icterus. No conjunctival pallor. Normocephalic, atraumatic. No pharyngeal erythema. No thyromegaly. CARDIOVASCULAR: S1 and S2 present. No murmurs, rubs, or gallops. PULMONARY: Chest is clear to auscultation, no wheezing or crackles. ABDOMEN: Soft, nontender, nondistended, normoactive bowel sounds. No palpable organomegaly. MUSCULOSKELETAL: No joint swelling or deformity. EXTREMITIES: No cyanosis, clubbing, or pedal edema. NEUROLOGICAL: Gross neurological examination did not reveal any focal deficits. SKIN: No rashes. - Labs CBC & Chem 7: 10/21/22 03:45 10/21/22 03:45 Labs: Abnormal Lab Results - Last 24 Hours (Table) 10/19/22 Range/Units 18:55 Ur Specific [place] 1.040 H (1.001-1.035) Urine Protein Trace H (Negative) Urine Glucose (UA) 1+ H (Negative) Assessment and Plan Assessment: 1. Acute hypoxic respiratory failure; multifactorial related to COPD exacer bation versus pneumonia - Patient is currently on O2 per nasal cannula at 6 L; O2 saturation maintaining above; we will plan to titrate intravenous able 2. Advanced COPD; in acute exacerbation; patient has long-standing history of smoking; patient is placed on IV Solu-Medrol; albuterol nebulizer treatments 4 times a day; patient to bring her Cece Weston from home and utilize a during her hospital stay 3. Right lower lobe pneumonia; patient has been placed on Rocephin 1 g IV daily along with azithromycin 500 mg IV daily; albuterol nebulizer treatments 4 times a day; has been placed on IV Solu-Medrol recommendations 4. Hypertension; lisinopril 5 mg daily 5. Hyperlipidemia; Pravachol 10 mg by mouth daily at bedtime 6. Peripheral neuropathy; Neurontin 600 mg by mouth 3 times a day 7. Restless leg syndrome; patient takes Requip 0.25 mg daily 8. Long-standing history of tobacco abuse; counseling done for smoking cessation; nicotine patch as ordered DVT prophylaxis; SCDs/subcu heparin CODE STATUS; full code
--- NOTE | 2022-10-21 16:51 | P.PN ---
Subjective Progress Note Date: 10/21/22 Principal diagnosis: Acute hypoxic respiratory failure related to COPD exacerbation Right lower lobe pneumonia Chronic back pain 77-year-old female presents emergency Department chief complaint weakness, hypoxia. Patient states that she's been having increasing weakness and which she states she cannot even stand up today. Patient was found to be hypoxic in the 70s. Patient states she does have asthma receives an inhaler from her PCP. Patient denies having history of COPD though she states she's been a heavy smoker for 50 years. Patient denies any focal weakness denies any current headache. She states she is very minimal urine output and states does occasionally burn when she does. Patient denies any fever or chills. She denies having any cold-like symptoms. Patient does have some chest tightness denies any pain Patient was found to be hypoxic in ED. Patient is a heavy smoker for 50 years; CTA chest is negative for PE but didn't reveal background emphysema and right lower lobe pneumonia blood work, d-dimer is at 1.7, fasting coagulation profile is within normal limits. The discomfort of 12.5 with a hemoglobin 14.7. Normal UA. Normal troponins. Alkaline phosphatase slightly elevated at 2:30, bilirubin is at 0.7, total protein is at 5.9. -- Patient has been evaluated by pulmonary service and has been placed on IV Rocephin and azithromycin for right lower lobe pneumonia; patient remains on albuterol nebulizer treatments 4 times a day; continue with current dose of IV Solu-Medrol; sputum Gram stain and culture is sent and pending 10/21/2022 Patient reports some limited improvement since yesterday. The patient is still coughing. She was able to give us a sputum sample and the cultures are still pending. Remains on O2 at 5 L O2 nasal cannula. He remains on bronchodilators. She remains on steroids.Visit is at 16.8 with a hemoglobin of 13.4 and a platelet count of 207. Sodium is 140 with a potassium level of 5, BUN is 19 with a creatinine of 0.7. The patient remains on broad-spectrum antibiotics and steroids. Covid 19 testing turned out to be negative. Patient is to continue IV Rocephin and azithromycin for right lower lobe pneumonia; albuterol nebulizer treatments 4 times a day and when necessary; continue with current dose of IV steroids Objective - Vital Signs Vital signs: Vital Signs Temp 98.7 F 04/02/23 08:00 Pulse 72 10/21/22 08:52 Resp 18 10/21/22 08:00 BP 140/77 10/21/22 08:00 Pulse Ox 91 L 10/21/22 08:39 FiO2 Intake & Output 10/20/22 10/21/22 10/21/22 18:59 06:59 18:59 Intake Total 200 Balance 200 Intake: Oral 200 Other: Voiding Method Bedpan # Voids 2 2 # Bowel Movements 1 - Exam PHYSICAL EXAMINATION: GENERAL: The patient is alert and oriented x3, not in any acute distress. Well developed, well nourished. HEENT: Pupils are round and equally reacting to light. EOMI. No scleral icterus. No conjunctival pallor. Normocephalic, atraumatic. No pharyngeal erythema. No thyromegaly. CARDIOVASCULAR: S1 and S2 present. No murmurs, rubs, or gallops. PULMONARY: Chest is clear to auscultation, no wheezing or crackles. ABDOMEN: Soft, nontender, nondistended, normoactive bowel sounds. No palpable organomegaly. MUSCULOSKELETAL: No joint swelling or deformity. EXTREMITIES: No cyanosis, clubbing, or pedal edema. NEUROLOGICAL: Gross neurological examination did not reveal any focal deficits. SKIN: No rashes. - Labs CBC & Chem 7: 10/21/22 03:45 10/21/22 03:45 Labs: Abnormal Lab Results - Last 24 Hours (Table) 10/21/22 10/21/22 Range/Units 03:45 03:45 WBC 16.85 H (4.50-10.00) X 10*3/uL MCV 98.4 H (80.0-97.0) fL MCHC 31.1 L (32.0-37.0) g/dL Immature Gran # 0.11 H (0.00-0.04) X 10*3/uL Neutrophils # 15.88 H (1.80-7.70) X 10*3/uL Lymphocytes # 0.35 L (0.90-5.00) X 10*3/uL Eosinophils # 0 L (0.04-0.35) X 10*3/uL Carbon Dioxide 32.2 H (20.0-27.5) mmol/L Anion Gap 8.30 L (10.00-18.00) mmol/L BUN/Creatinine Ratio 27.98 H (12.00-20.00) Ratio Glucose 147 H (70-110) mg/dL Microbiology - Last 24 Hours (Table) 10/20/22 11:58 Gram Stain - Preliminary Sputum Sputum Culture - Preliminary Assessment and Plan Assessment: 1. Acute hypoxic respiratory failure; multifactorial related to COPD exacerbation versus pneumonia - Patient is currently on O2 per nasal cannula at 6 L; O2 saturation maintaining above; we will plan to titrate intravenous able 2. Advanced COPD; in acute exacerbation; patient has long-standing history of smoking; patient is placed on IV Solu-Medrol; albuterol nebulizer treatments 4 times a day; patient to bring her Cece Weston from home and utilize a during her hospital stay 3. Right lower lobe pneumonia; patient has been placed on Rocephin 1 g IV daily along with azithromycin 500 mg IV daily; albuterol nebulizer treatments 4 times a day; has been placed on IV Solu-Medrol recommendations 4. Hypertension; lisinopril 5 mg daily 5. Hyperlipidemia; Pravachol 10 mg by mouth daily at bedtime 6. Peripheral neuropathy; Neurontin 600 mg by mouth 3 times a day 7. Restless leg syndrome; patient takes Requip 0.25 mg daily 8. Long-standing history of tobacco abuse; counseling done for smoking cessation; nicotine patch as ordered DVT prophylaxis; SCDs/subcu heparin CODE STATUS; full code
[2022-10-22] MEDS: methylPREDNISolone SOD SUCCI 125 MG/2 ML VIAL IV SCH ×4 (00:14→17:07)
[2022-10-22] MEDS: GABAPENTIN 300 MG CAP PO SCH ×3 (09:05→21:38)
[2022-10-22] MEDS: MULTIVITAMINS, THERA 1 EACH TAB PO SCH (09:05)
[2022-10-22] MEDS: PRAVASTATIN SODIUM 20 MG TAB PO SCH (09:05)
[2022-10-22] MEDS: CHOLECALCIFEROL 25 MCG (1000 IU) TABLET PO SCH (09:05)
[2022-10-22] MEDS: NIFEdipine XL 30 MG TAB.ER.24 PO SCH (09:05)
[2022-10-22] MEDS: lisinopriL 5 MG TAB PO SCH (09:05)
[2022-10-22] MEDS: NICOTINE 21MG/24HR PATCH TRANSDERM SCH (09:07)
[2022-10-22] MEDS: ENOXAPARIN 40 MG/0.4 ML SYRINGE SQ SCH (09:12)
[2022-10-22] MEDS: IPRATROPIUM 0.5 MG/2.5 ML NEBU INHALATION SCH ×4 (09:26→21:06)
[2022-10-22] MEDS: ALBUTEROL NEBULIZED 2.5 MG/3 ML INHALATION SCH ×4 (09:26→21:06)
[2022-10-22] MEDS ORDERED: ONDANSETRON 4 MG TAB PO PRN (13:33)
--- NOTE | 2022-10-22 15:06 | P.PN ---
Subjective Progress Note Date: 10/22/22 This is a 77-year-old female patient was hospitalized with pneumonia and COPD exacerbation. The patient is known to have COPD maintain on Trelegy Ellipta on an outpatient basis pH is a chronic smoker and she is smoking up to 3 pack of cigarettes a day. She started smoking at the age of 16. The patient is not oxygen dependent. The patient came into the emergency because of worsening weakness. She has chronic back pain and she has been having difficulties in mobility and standing up. At the same time, he was found to be hypoxic with a pulse ox in the 70s. Accordingly, the patient was given a chest x-ray and following that the patient was given a CT angiogram. I reviewed the films and the patient has background emphysema and there is a right lower lobe pneumonia. Nevertheless, there is no evidence of pulmonary embolism. Based on that, the patient was hospitalized. Covid 19 has not been checked. In terms of blood work, d-dimer is at 1.7, fasting coagulation profile is within normal limits. The discomfort of 12.5 with a hemoglobin 14.7. Normal UA. Normal troponins. Alkaline phosphatase slightly elevated at 2:30, bilirubin is at 0.7, total protein is at 5.9. Patient is currently on Zithromax. The patient is also on bronchodilators with albuterol. She was placed on IV Solu-Medrol. She was also given a nicotine patch. On today's evaluation of 10/21/2022, some limited improvement since yesterday. The patient is still coughing. She was able to give us a sputum sample and the cultures are still pending. Meanwhile, the patient is currently on oxygen and she is on 5 L O2 nasal cannula. He remains on bronchodilators. She remains on steroids.Visit is at 16.8 with a hemoglobin of 13.4 and a platelet count of 207. Sodium is 140 with a potassium level of 5, BUN is 19 with a creatinine of 0.7. The patient remains on broad-spectrum antibiotics and steroids. Covid 19 testing turned out to be negative. The patient is seen today 10/22/2022 in follow-up on the regular medical floor. She is currently sitting up at the bedside. Awake and alert in no acute distres s. She is still requiring 5 L high flow nasal cannula to maintain O2 saturations in the 90s. She does not have home oxygen. She is being treated for right lower lobe and suspected left lower lobe pneumonia. Continued on ceftriaxone. Completed azithromycin. Remains on Symbicort, albuterol, IV Solu- Medrol. NicoDerm patches in place. Sputum culture positive for Haemophilus influenza. No new labs today. Objective - Vital Signs Vital signs: Vital Signs Temp 98.5 F 10/22/22 13:34 Pulse 87 10/22/22 13:34 Resp 17 10/22/22 13:34 BP 110/71 10/22/22 13:34 Pulse Ox 93 L 10/22/22 13:34 FiO2 Intake & Output 10/21/22 10/22/22 10/22/22 18:59 06:59 18:59 Output Total 200 Balance -200 Output: Urine 200 Other: Voiding Method Bedpan Bedpan # Voids 4 1 1 # Bowel Movements 1 1 - Exam GENERAL EXAM: Alert, pleasant 77-year-old female, on 5 L nasal cannula, comfortable in no apparent distress. HEAD: Normocephalic. EYES: Normal reaction of pupils, equal size. NOSE: Clear with pink turbinates. THROAT: No erythema or exudates. NECK: No masses, no JVD. CHEST: No chest wall deformity. LUNGS: Equal air entry with bilateral scattered rhonchi. CVS: S1 and S2 normal with no audible murmur, regular rhythm. ABDOMEN: No hepatosplenomegaly, normal bowel sounds, no guarding or rigidity. SPINE: No scoliosis or deformity SKIN: No rashes CENTRAL NERVOUS SYSTEM: No focal deficits, tone is normal in all 4 extremities. EXTREMITIES: There is no peripheral edema. No clubbing, no cyanosis. Peripheral pulses are intact. - Labs CBC & Chem 7: 10/21/22 03:45 10/21/22 03:45 Labs: Microbiology - Last 24 Hours (Table) 10/20/22 11:58 Gram Stain - Final Sputum Sputum Culture - Final Haemophilus influenzae Assessment and Plan Assessment: Acute hypoxic respiratory failure secondary to COPD exacerbation right lower lobe and possible left lower lobe pneumonia, currently on 5 L Right lower lobe and to a lesser amount the left lower lobe pulmonary infiltrate/pneumonia, contributing to respiratory failure Advanced COPD and the patient with known history of smoking, maintain on Trelegy Ellipta on outpatient basis History of smoking Chronic back pain and difficulty with mobility and gait, likely history of r adiculopathy Hypertension Hyperlipidemia History of restless leg syndrome Plan: The patient was seen and evaluated Labs and medications reviewed Continue the current treatment plan Titrate down the FiO2 as tolerated Educated regarding the importance of complete smoking cessation NicoDerm patch remains in place Follow-up chest x-ray in a.m. We will continue to follow I have personally seen and examined the patient, performed the documentation and the assessment and plan as written. Number of minutes spent on the visit: 10.
[2022-10-22 17:50] LABS: T4, Free (Free Thyroxine) 1.14 ng/dL (0.78-2.19)
--- NOTE | 2022-10-22 23:20 | PN ---
PROGRESS NOTE DATE OF SERVICE: 10/22/2022 SUBJECTIVE: This is a 77-year-old woman, who was admitted with COPD acute exacerbation and right lower lobe pneumonia. She is on bronchodilators and antibiotics. No chest pain. No palpitations. No fever. OBJECTIVE: VITAL SIGNS: Pulse 80, blood pressure 110/70, respirations 17. The patient is on 5 L. HEENT: Conjunctivae are normal. CARDIOVASCULAR: S1 and S2. RESPIRATORY: Few scattered rhonchi. ABDOMEN: Soft. NERVOUS SYSTEM: Nonfocal. LABORATORY DATA: Reviewed. ASSESSMENT: 1. Chronic obstructive pulmonary disease acute exacerbation. 2. Right lower lobe pneumonia. 3. History of asthma. RECOMMENDATIONS: This is a 77-year-old woman, who presented with multiple complex medical issues. I recommend to continue the antibiotics, continue the bronchodilators, continue the IV steroids. Closely follow with Dr. Burnette. Further recommendations to follow. MMODL / IJN: [id number] /
[2022-10-23] MEDS: methylPREDNISolone SOD SUCCI 125 MG/2 ML VIAL IV SCH ×3 (00:27→13:31)
[2022-10-23] MEDS ORDERED: SYMBICORT 80-4.5 MCG INHALER INHALATION SCH (08:00)
[2022-10-23] MEDS ORDERED: IPRATROPIUM 0.5 MG/2.5 ML NEBU INHALATION SCH (08:00)
--- NOTE | 2022-10-23 08:09 | XR ---
EXAMINATION TYPE: XR chest 1V portable DATE OF EXAM: 10/23/2022 6:42 AM COMPARISON: Chest radiographs from 10/19/2022, CTA chest 10/19/2022 TECHNIQUE: XR chest 1V portable Portable AP radiograph of the chest. CLINICAL INDICATION:Female, 77 years old with history of Pneumonia, COPD; FINDINGS: Lungs/Pleura: Blunting of the right costophrenic angle with bibasilar airspace opacities. Hyperinflat ion. Pulmonary vascularity: Unremarkable. Heart/mediastinum: Cardiomediastinal silhouette is prominent in size. Atherosclerotic calcifications are seen in the aorta. Musculoskeletal: No acute osseous pathology. Bilateral shoulder arthropathy with calcified loose bodi es within the right shoulder joint. IMPRESSION: 1. Small right pleural effusion with bibasilar airspace opacities may represent atelectasis versus i nfiltrates. 2. COPD changes.
[2022-10-23] MEDS: IPRATROPIUM 0.5 MG/2.5 ML NEBU INHALATION SCH ×3 (08:20→15:39)
[2022-10-23] MEDS: ALBUTEROL NEBULIZED 2.5 MG/3 ML INHALATION SCH ×3 (08:20→15:39)
[2022-10-23] MEDS ORDERED: NON FORMULARY DRUG (Omega-3/Dha/Epa/Fish Oil [Fish Oil 1,000 Mg Softgel] 1 EACH Capsule) PO SCH (09:00)
[2022-10-23] MEDS ORDERED: ASPIRIN 81 MG PO SCH (09:00)
[2022-10-23] MEDS: NIFEdipine XL 30 MG TAB.ER.24 PO SCH (09:44)
[2022-10-23] MEDS: NICOTINE 21MG/24HR PATCH TRANSDERM SCH (09:48)
[2022-10-23] MEDS: MULTIVITAMINS, THERA 1 EACH TAB PO SCH (09:51)
[2022-10-23] MEDS: GABAPENTIN 300 MG CAP PO SCH ×2 (09:51→16:46)
[2022-10-23] MEDS: lisinopriL 5 MG TAB PO SCH (09:52)
[2022-10-23] MEDS: CHOLECALCIFEROL 25 MCG (1000 IU) TABLET PO SCH (09:53)
[2022-10-23] MEDS: PRAVASTATIN SODIUM 20 MG TAB PO SCH (09:53)
[2022-10-23] MEDS: ENOXAPARIN 40 MG/0.4 ML SYRINGE SQ SCH (09:54)
[2022-10-23 11:19] LABS: African American GFR (CKD) 96.9 (60.0-200.0); Anion Gap 9.9 mmol/L (10.00-18.00); BUN/Creat Ratio 29.71 Ratio (12.00-20.00); Blood Urea Nitrogen 20.8 mg/dL (9.0-27.0); Calcium 8.9 mg/dL (8.7-10.3); Carbon Dioxide 33.1 mmol/L (20.0-27.5); Non-African American GFR(CKD) 83.6 (60.0-200.0)
[2022-10-23 13:45] LABS: Basophils # (A) 0.04 X 10*3/uL (0.00-0.10); Basophils % (A) 0.3 %; Eosinophils # (A) 0 X 10*3/uL (0.04-0.35); Eosinophils % (A) 0 %; HCT 45.8 % (37.2-46.3); HGB 14.1 g/dL (12.0-15.0); Immature Grans, Automated 1.3 %; Lymphocytes # (A) 0.35 X 10*3/uL (0.90-5.00); Lymphocytes % (A) 2.7 %; MCH 30.3 pg (27.0-32.0); MCHC 30.8 g/dL (32.0-37.0); MCV 98.5 fL (80.0-97.0); Mean Platelet Volume 12.3 fL (9.5-12.2); Monocytes # (A) 0.34 X 10*3/uL (0.20-1.00); Monocytes % (A) 2.6 %; NRBC Per 100 WBC 0 /100 WBCS (0.0-0.0); Neutrophils # (A) 12.07 X 10*3/uL (1.80-7.70); Neutrophils % (A) 93.1 %; Platelet Count 172 X 10*3/uL (140-440); RBC 4.65 X 10*6/uL (4.10-5.20); RDW 14.3 % (11.5-14.5); WBC 12.97 X 10*3/uL (4.50-10.00)
--- NOTE | 2022-10-23 13:58 | P.PN ---
Subjective Progress Note Date: 10/23/22 This is a 77-year-old female patient was hospitalized with pneumonia and COPD exacerbation. The patient is known to have COPD maintain on Trelegy Ellipta on an outpatient basis pH is a chronic smoker and she is smoking up to 3 pack of cigarettes a day. She started smoking at the age of 16. The patient is not oxygen dependent. The patient came into the emergency because of worsening weakness. She has chronic back pain and she has been having difficulties in mobility and standing up. At the same time, he was found to be hypoxic with a pulse ox in the 70s. Accordingly, the patient was given a chest x-ray and following that the patient was given a CT angiogram. I reviewed the films and the patient has background emphysema and there is a right lower lobe pneumonia. Nevertheless, there is no evidence of pulmonary embolism. Based on that, the patient was hospitalized. Covid 19 has not been checked. In terms of blood work, d-dimer is at 1.7, fasting coagulation profile is within normal limits. The discomfort of 12.5 with a hemoglobin 14.7. Normal UA. Normal troponins. Alkaline phosphatase slightly elevated at 2:30, bilirubin is at 0.7, total protein is at 5.9. Patient is currently on Zithromax. The patient is also on bronchodilators with albuterol. She was placed on IV Solu-Medrol. She was also given a nicotine patch. On today's evaluation of 10/21/2022, some limited improvement since yesterday. The patient is still coughing. She was able to give us a sputum sample and the cultures are still pending. Meanwhile, the patient is currently on oxygen and she is on 5 L O2 nasal cannula. He remains on bronchodilators. She remains on steroids.Visit is at 16.8 with a hemoglobin of 13.4 and a platelet count of 207. Sodium is 140 with a potassium level of 5, BUN is 19 with a creatinine of 0.7. The patient remains on broad-spectrum antibiotics and steroids. Covid 19 testing turned out to be negative. The patient is seen today 10/22/2022 in follow-up on the regular medical floor. She is currently sitting up at the bedside. Awake and alert in no acute distres s. She is still requiring 5 L high flow nasal cannula to maintain O2 saturations in the 90s. She does not have home oxygen. She is being treated for right lower lobe and suspected left lower lobe pneumonia. Continued on ceftriaxone. Completed azithromycin. Remains on Symbicort, albuterol, IV Solu- Medrol. NicoDerm patches in place. Sputum culture positive for Haemophilus influenza. No new labs today. The patient is seen today 10/23/2022 in follow-up on the regular medical floor. She is awake and alert in no acute distress. Currently sitting up in bed. She is feeling nearly back to her baseline. Maintaining good O2 saturations in the 90s on 4 L nasal cannula. Chest x-ray reveals evidence of COPD with a small right pleural effusion. Atelectasis. She is continued on bronchodilators, IV Solu-Medrol, antibiotics in the form of ceftriaxone. Lovenox for DVT prophylaxis. NicoDerm patch in place. White count 12.9. Hemoglobin 14.1. Sodium 140. Potassium 5.0. Bicarb 33. BUN 21. Creatinine 0.7. ProBNP 613. Objective - Vital Signs Vital signs: Vital Signs Temp 98.4 F 10/23/22 07:11 Pulse 90 10/23/22 12:48 Resp 19 10/23/22 08:00 BP 126/79 10/23/22 07:11 Pulse Ox 86 L 10/23/22 12:48 FiO2 Intake & Output 10/22/22 10/23/22 10/23/22 18:59 06:59 18:59 Intake Total 180 Output Total 500 Balance -500 180 Intake: Oral 180 Output: Urine 500 Other: Voiding Method Bedpan Bedside Commode # Voids 1 3 # Bowel Movements 1 - Exam GENERAL EXAM: Alert, pleasant 77-year-old female, on 3 L nasal cannula, comfortable in no apparent distress. HEAD: Normocephalic. EYES: Normal reaction of pupils, equal size. NOSE: Clear with pink turbinates. THROAT: No erythema or exudates. NECK: No masses, no JVD. CHEST: No chest wall deformity. LUNGS: Equal air entry with bilateral scattered rhonchi. CVS: S1 and S2 normal with no audible murmur, regular rhythm. ABDOMEN: No hepatosplenomegaly, normal bowel sounds, no guarding or rigidity. SPINE: No scoliosis or deformity SKIN: No rashes CENTRAL NERVOUS SYSTEM: No focal deficits, tone is normal in all 4 extremities. EXTREMITIES: There is no peripheral edema. No clubbing, no cyanosis. Peripheral pulses are intact. - Labs CBC & Chem 7: 10/23/22 05:13 10/23/22 05:13 Labs: Abnormal Lab Results - Last 24 Hours (Table) 10/22/22 10/23/22 10/23/22 Range/Units 14:20 05:13 05:13 WBC 12.97 H (4.50-10.00) X 10*3/uL MCV 98.5 H (80.0-97.0) fL MCHC 30.8 L (32.0-37.0) g/dL MPV 12.3 H (9.5-12.2) fL Immature Gran # 0.17 H (0.00-0.04) X 10*3/uL Neutrophils # 12.07 H (1.80-7.70) X 10*3/uL Lymphocytes # 0.35 L (0.90-5.00) X 10*3/uL Eosinophils # 0 L (0.04-0.35) X 10*3/uL Carbon Dioxide 33.1 H (20.0-27.5) mmol/L Anion Gap 9.90 L (10.00-18.00) mmol/L BUN/Creatinine Ratio 29.71 H (12.00-20.00) Ratio Glucose 134 H (70-110) mg/dL TSH 0.118 L (0.465-4.680) mIU/L Free T3 pg/mL 2.1 L (2.8-5.3) pg/ml Microbiology - Last 24 Hours (Table) 10/20/22 11:58 Gram Stain - Final Sputum Sputum Culture - Final Haemophilus influenzae Assessment and Plan Assessment: Acute hypoxic respiratory failure secondary to COPD exacerbation secondary to bilateral infiltrates currently on 3 L Advanced COPD and the patient with known history of smoking, maintain on Trelegy Ellipta on outpatient basis History of smoking Chronic back pain and difficulty with mobility and gait, likely history of radiculopathy Hypertension Hyperlipidemia History of restless leg syndrome Plan: The patient was seen and evaluated Chest x-ray, labs and medications reviewed Cleared for discharge from the pulmonary stand Titrate down the FiO2 as tolerated May require home oxygen Educated regarding the importance of complete smoking cessation NicoDerm patch remains in place Complete a course of antibiotics Complete a prednisone taper Continue her home Trelegy and nebulized treatments Follow-up in the office in 1 week I have personally seen and examined the patient, performed the documentation and the assessment and plan as written. Number of minutes spent on the visit: 10.
[2022-10-23 14:42] VITALS: BP 121/85; PULSE 83; RESP 18; TEMP 97.8
--- NOTE | 2022-10-25 06:27 | P.DS ---
Providers Date of admission: 10/19/22 15:35 Expected date of discharge: 10/23/22 Attending physician: Lina Miranda Consults: 10/19/22 15:24 Consult Physician Routine Consulting Provider: Paola Piña Consult Reason/Comments: copd,hypoxia Do you want consulting provider notified?: Yes Primary care physician: Stated None Hospital Course: Final diagnosis Chronic obstructive pulmonary disease, acute exacerbation Acute hypoxic respiratory failure secondary to COPD Right lower lobe pneumonia History of asthma Continued ongoing nicotine dependence Obesity with BMI 35.2 Discharge disposition Patient is being discharged in a stable condition with guarded prognosis to home. Patient will follow-up with Marta Garcia NP in the outpatient setting upon discharge. Patient is to continue with oral Ceftin along with a prednisone taper close outpatient follow-up with pulmonary as scheduled. Total time taken is greater than 35 minutes. Hospital course This is a 77-year-old female who was recently admitted with shortness of breath and COPD exacerbation. Patient is requiring oxygen and will be going home with oxygen. Nasal cannula to manage COPD. Patient was being followed by pulmonary maintained on breathing treatments along with IV steroids and antibiotics. Patient has been cleared by pulmonary. Please refer to pulmonary no for further HPI. Patient is to follow up with pulmonary the outpatient setting in the next 1-2 weeks. Patient will continue oral Ceftin along with a prednisone taper on discharge. Patient counseled on complete cessation of tobacco use and exposure. Currently no reports of chest pain, worsening shortness of breath, or palpitations. Patient is afebrile. No reports of nausea or vomiting and patient is tolerating diet. Patient will be discharged home today. Extremely guarded prognosis and high risk for readmission. Physical exam: Gen: This is a 77-year-old female who is awake, alert and oriented 3, well- developed, well-nourished, obese HEENT: Head is atraumatic, normocephalic. Pupils equal, round. Sclerae is anicteric. NECK: Supple. No JVD. No lymphadenopathy. No thyromegaly. LUNGS: Diminished breath sounds bilaterally with some scattered rhonchi and faint expiratory wheezing. No intercostal retractions. HEART: S1, S2 are muffled ABDOMEN: Soft. Obese. Bowel sounds are present. No masses. No tenderness. EXTREMITIES: No pedal edema. No calf tenderness. NEUROLOGICAL: Patient is awake, alert and oriented x3. Cranial nerves 2 through 12 are grossly intact. Please refer to medication reconciliation sheet for a list of medications. The impression and plan of care has been dictated by Marta Cormier, Nurse Practitioner as directed. Dr. Ruben MD I have performed a history and examination and MDM of this patient, discussed the same with the dictator, and agree with the dictator's assessment and plan as written ,documented as a scribe. Based on total visit time, I have performed more than 50% of the visit. Patient Condition at Discharge: Fair Plan - Discharge Summary Discharge Rx Participant: No New Discharge Prescriptions: New cefUROXime axetiL [Ceftin] 500 mg PO BID 5 Days #10 tab predniSONE 10 mg PO DIRECTED #30 tab Ipratropium Nebulized [Atrovent Nebulized 0.2 MG/ML] 0.5 mg INHALATION RT-QID 30 Days #120 each Ipratropium Nebulized [Atrovent Nebulized 0.2 MG/ML] 0.5 mg INHALATION RT-QID PRN ml PRN Reason: Shortness Of Breath Or Wheezing Nicotine 21Mg/24Hr Patch [Habitrol] 1 patch TRANSDERM DAILY #30 patch Albuterol Nebulized [Ventolin Nebulized] 2.5 mg INHALATION RT-QID PRN 30 Days #60 each PRN Reason: Shortness Of Breath Or Wheezing Continue Gabapentin 600 mg PO TID Multivitamins, Thera [Multivitamin (formulary)] 1 tab PO DAILY ondansetron HCL [Zofran] 8 mg PO Q8H PRN PRN Reason: Nausea [place]-3/Dha/Epa/Fish Oil [Fish Oil 1,000 mg Softgel] 1 cap PO DAILY Aspirin EC [Ecotrin Low Dose] 81 mg PO DAILY Fluticasone/Umeclidin/Vilanter [Trelegy Ellipta 100-62.5-25] 1 puff INHALATION RT-DAILY Cholecalciferol (Vitamin D3) [Vitamin D3 (50 Mcg = 2000 Iu) Chew Tab] 50 mcg PO DAILY rOPINIRole HCL [Requip] 0.25 mg PO DAILY lisinopriL [Zestril] 5 mg PO DAILY Pravastatin Sodium [Pravachol] 10 mg PO DAILY NIFEdipine XL [Procardia XL] 30 mg PO DAILY Discharge Medication List Aspirin EC [Ecotrin Low Dose] 81 mg PO DAILY 10/19/22 [History] Cholecalciferol (Vitamin D3) [Vitamin D3 (50 Mcg = 2000 Iu) Chew Tab] 50 mcg PO DAILY 10/19/22 [History] Fluticasone/Umeclidin/Vilanter [Trelegy Ellipta 100-62.5-25] 1 puff INHALATION RT-DAILY 10/19/22 [History] Gabapentin 600 mg PO TID 10/19/22 [History] Multivitamins, Thera [Multivitamin (formulary)] 1 tab PO DAILY 10/19/22 [History] NIFEdipine XL [Procardia XL] 30 mg PO DAILY 10/19/22 [History] [place]-3/Dha/Epa/Fish Oil [Fish Oil 1,000 mg Softgel] 1 cap PO DAILY 10/19/22 [History] Pravastatin Sodium [Pravachol] 10 mg PO DAILY 10/19/22 [History] lisinopriL [Zestril] 5 mg PO DAILY 10/19/22 [History] ondansetron HCL [Zofran] 8 mg PO Q8H PRN 10/19/22 [History] rOPINIRole HCL [Requip] 0.25 mg PO DAILY 10/19/22 [History] Albuterol Nebulized [Ventolin Nebulized] 2.5 mg INHALATION RT-QID PRN 30 Days #60 each 10/23/22 [Rx] Ipratropium Nebulized [Atrovent Nebulized 0.2 MG/ML] 0.5 mg INHALATION RT-QID 30 Days #120 each 10/23/22 [Rx] Ipratropium Nebulized [Atrovent Nebulized 0.2 MG/ML] 0.5 mg INHALATION RT-QID PRN ml 10/23/22 [Rx] Nicotine 21Mg/24Hr Patch [Habitrol] 1 patch TRANSDERM DAILY #30 patch 10/23/22 [Rx] cefUROXime axetiL [Ceftin] 500 mg PO BID 5 Days #10 tab 10/23/22 [Rx] predniSONE 10 mg PO DIRECTED #30 tab 10/23/22 [Rx] Follow up Appointment(s)/Referral(s): Davide Burnette MD [STAFF PHYSICIAN] - 2 Weeks [facility] [NON-STAFF] - As Needed (Call [facility] today to arrange delivery of the oxygen concentrator to your home. ) Marta Garcia, ANTON [REFERRING] - 1-2 Days Patient Instructions/Handouts: How to Stop Smoking (DC), Cigarette Smoking and Your Health (GEN), Using Oxygen at Home (DC), COPD (Chronic Obstructive Pulmonary Disease) (DC), Weakness (DC) Activity/Diet/Wound Care/Special Instructions: Activity Limited until follow-up Follow-up with primary care provider on discharge Call orthopedics office and follow-up with scheduled epidural injections outpatient Follow-up with pulmonary in one week Continue taking medications as prescribed Continue with supplemental oxygen at 5 L via nasal cannula to manage COPD Discharge Disposition: HOME SELF-CARE
== END 2022-10-23 17:54 | disposition home or self-care (01) | DRG 193 ==
LOC: EC 11:39 → 4SSUR 15:35
PROVIDERS: ADMIT Hospitalist; ATTEND Hospitalist
DX: J18.9 Pneumonia, unspecified organism (principal); J96.01 Acute respiratory failure with hypoxia; Z20.822 Contact with and (suspected) exposure to COVID-19; J43.9 Emphysema, unspecified; E78.5 Hyperlipidemia, unspecified; I10 Essential (primary) hypertension; G89.29 Other chronic pain; M54.9 Dorsalgia, unspecified; G25.81 Restless legs syndrome; M54.10 Radiculopathy, site unspecified; G62.9 Polyneuropathy, unspecified; E66.9 Obesity, unspecified; F17.210 Nicotine dependence, cigarettes, uncomplicated; Z71.6 Tobacco abuse counseling; Z68.35 Body mass index [BMI] 35.0-35.9, adult; Z79.82 Long term (current) use of aspirin; Z79.52 Long term (current) use of systemic steroids; Z79.899 Other long term (current) drug therapy; Z88.0 Allergy status to penicillin; Z88.2 Allergy status to sulfonamides; Z88.1 Allergy status to other antibiotic agents
CPT/HCPCS: 36415; 71045; 71046; 71275; 80048; 80053; 81003; 83605; 83735; 83880; 84145; 84439; 84443; 84481; 84484; 85025; 85379; 85610; 85730; 87070; 87205; 87635; 93005; 94640; 94760; 96374; 96375; 96376; 99285